=== PATIENT | female | born 1945 | race Caucasian/White ===

== ENCOUNTER 2016-11-29 03:54 | Emergency (ER) | payer MEDICARE, OTHER ==
[2016-11-29 04:08] VITALS: BP 158/81; PULSE 112; TEMP 97.4; BMI 15.3
--- NOTE | 2016-11-29 04:10 | PDOC ---
History of Present Illness - General Chief Complaint: Tachycardia Stated Complaint: HEART POUNDING Time Seen by Provider: 11/29/16 04:06 History Source: Patient Exam Limitations: No Limitations - History of Present Illness Initial Comments: 11/29/16 04:08 This is a 70-year-old female who comes in complaining of palpitations. Patient is supposed to take clonazepam for anxiety however said that she has not been taking it as prescribed and then skipped the last couple a days. Patient denies any other complaints. Patient denies any chest pain, shortness of breath, nausea , vomiting, diarrhea. PAST MEDICAL HISTORY: no significant history PAST SURGICAL HISTORY: no significant history FAMILY HISTORY: no pertinant history SOCIAL HISTORY: Pt lives with family and is employed. MEDICATIONS: reviewed ALLERGIES: As per nursing notes Review of Systems General: No fevers or chills, no weakness, no weight loss HEENT: No change in vision. No sore throat,. No ear pain CardioVascular: No chest pain or shortness of breath, palpitations as per history of present illness Respiratory:No cough, or wheezing. Gastrointestinal: no nausea, vomitting, diarrhea or constipation, No rectal bleeding Genitourinary: No dysuria, hematuria, or frequency Musculoskeletal: No joint or muscle pain or swelling Neurologic: No headache, vertigo, dizziness or loss of consciousness Psychiatric: nor depression Skin: No rashes or easy bruising Endocrine: no increased thirst or abnormal weight change Allergic: no skin or latex allergy All other systems reviewed and normal Exam: General: Well-nourished well-developed individual, no acute distress HEENT: Throat: Normal, tonsils normal, no erythema or exudate Neck: Supple, no meningeal signs, no lymphadenopathy Eyes::Pupils equal reactive and round, extraocular motion intact Chest: Nontender to palpation Cardiac: S1-S2 normal, regular rate and rhythm, no murmurs rubs or gallops Respiratory: Lungs clear to auscultation bilateral Abdomen: Soft, nondistended, normal bowel sounds, nontender to palpation diffusely Extremities: Warm, dry, no cyanosis, clubbing, or edema Skin: No rashes Neuro: Alert and oriented x3, nonfocal exam, grossly intact, normal gait Psych: Normal mood and affect EKG normal sinus rhythm at a rate of 112, no acute ST-T wave changes. Assessment plan: This is a 62-year-old female comes in complaining of palpitations most likely secondary to an anxiety attack. Patient has history of similar symptoms in the past. Patient is supposed to take clonazepam for the symptoms that has skipped the last couple of nights. Patient has clonazepam with her and did drive herself to the ER so was told to go home take her clonazepam and follow-up with her doctor in the morning. Past History - Past Medical History Allergies/Adverse Reactions: Allergies Allergy/AdvReac Type Severity Reaction Status Date / Time tetracycline [Tetracycline] Allergy Unknown Verified 03/15/15 13:54 Sulfa (Sulfonamide AdvReac Verified 03/15/15 15:48 Antibiotics) Home Medications: Ambulatory Orders Clonazepam 0.5 mg PO HS 02/12/15 Lisinopril/Hydrochlorothiazide [Lisinopril-Hctz 20-12.5 mg Tab] 1 each PO DAILY 02/12/15 Oxycodone HCl/Acetaminophen [Percocet 10-325 mg Tablet -] 1 - 2 tab PO Q6H #20 tablet 02/12/15 Levofloxacin [Levaquin] 500 mg PO DAILY 11/29/16 Morphine Sulfate 15 mg PO PRN 11/29/16 COPD: Yes HTN: Yes Psychiatric Problems: Yes (ANXIETY, PANIC ATTACKS, DEPRESSION) - Psycho/Social/Smoking Cessation Hx Anxiety: Yes Suicidal Ideation: No Smoking History: Current some day smoker Have you smoked in the past 12 months: Yes Number of Cigarettes Smoked Daily: 20 'Breaking Loose' booklet given: 03/15/15 Hx Alcohol Use: No Drug/Substance Use Hx: No Substance Use Type: None *DC/Admit/Observation/Transfer Diagnosis at time of Disposition: Anxiety, Heart palpitations - Discharge Dispostion Disposition: HOME Condition at time of disposition: Stable Admit: No - Patient Instructions Additional Instructions: Is important that you take all your medications as prescribed at that she clonazepam. Return to the emergency department immediately with ANY new, persistent or worsening symptoms. Continue any medications as previously prescribed by your physician. You should follow up with your primary doctor as soon as possible regarding today's emergency department visit. . Please make sure your doctor reviews the results of your emergency evaluation. Thank you for coming to the Emergency Department today for your care. It was a pleasure to see you today. Please note that your evaluation is INCOMPLETE until you follow-up with your doctor.
--- NOTE | 2016-11-29 19:23 | EKG ---
Test Reason : Blood Pressure : / mmHG Vent. Rate : 112 BPM Atrial Rate : 112 BPM P-R Int : 118 ms QRS Dur : 076 ms QT Int : 348 ms P-R-T Axes : 081 -72 070 degrees QTc Int : 475 ms SINUS TACHYCARDIA LEFT AXIS DEVIATION PULMONARY DISEASE PATTERN CANNOT RULE OUT INFERIOR INFARCT , AGE UNDETERMINED ABNORMAL ECG NO PREVIOUS ECGS AVAILABLE REPEAT EKG IF CLINICALLY INDICATED Confirmed by ANASTACIO BATISTA MD ([id number]) on 11/29/2016 7:22:46 PM Referred By: BO GRIMALDO Confirmed By:ANASTACIO BATISTA MD
== END 2016-11-29 04:20 | disposition home or self-care (01) ==
LOC: FER 03:54
DX: R00.2 Palpitations (principal); F41.0 Panic disorder [episodic paroxysmal anxiety]; F17.210 Nicotine dependence, cigarettes, uncomplicated
CPT/HCPCS: 93005; 93010; 99282-25

== ENCOUNTER 2017-05-02 08:29 | Inpatient (IN) | payer MEDICARE, OTHER ==
--- NOTE | 2017-05-02 08:55 | PDOC ---
History of Present Illness - General Chief Complaint: Respiratory Stated Complaint: COUGH, Time Seen by Provider: 05/02/17 08:30 - History of Present Illness Initial Comments: 05/02/17 08:54 71 F with h/o COPD, HTN, spinal stenosis, fibromyalgia presenting with SOB. Pt states she has had 5 days of SOB with cough productive of green sputum. Denies fevers or chills. Denies CP. States that she had a few sick contacts last week with the flu. Denies recent travel. No leg swelling. Does not use O2 at home. Pt states she has been using her ventolin inhaler once daily without much improvement. Past History - Past Medical History Allergies/Adverse Reactions: Allergies Allergy/AdvReac Type Severity Reaction Status Date / Time tetracycline [Tetracycline] Allergy Unknown Verified 05/02/17 08:30 Sulfa (Sulfonamide AdvReac Verified 05/02/17 08:30 Antibiotics) Home Medications: Ambulatory Orders Clonazepam 0.5 mg PO HS 02/12/15 Morphine Sulfate 30 mg PO PRN 11/29/16 Albuterol Sulfate Inhaler - [Ventolin Hfa Inhaler -] 1 - 2 inh PO Q4HWA PRN Lisinopril/Hydrochlorothiazide [Lisinopril-Hctz 20-12.5 mg Tab] 1 each PO DAILY 05/02/17 Oxycodone HCl/Acetaminophen [Percocet 10-325 mg Tablet -] 10 mg PO TID 05/02/17 COPD: Yes HTN: Yes Psychiatric Problems: Yes (ANXIETY, PANIC ATTACKS, DEPRESSION) - Suicide/Smoking/Psychosocial Hx Smoking History: Current every day smoker Have you smoked in the past 12 months: Yes Number of Cigarettes Smoked Daily: 20 Information on smoking cessation initiated: Yes 'Breaking Loose' booklet given: 05/02/17 Hx Alcohol Use: No Drug/Substance Use Hx: No Substance Use Type: None Review of Systems - Review of Systems Comments:: 05/02/17 09:25 "GENERAL/CONSTITUTIONAL: No fever or chills. No weakness. HEAD, EYES, EARS, NOSE AND THROAT: No change in vision. No ear pain or discharge. No sore throat. CARDIOVASCULAR: No chest pain RESPIRATORY: + cough, SOB GASTROINTESTINAL: No nausea, vomiting, diarrhea or constipation. GENITOURINARY: No dysuria, frequency, or change in urination. MUSCULOSKELETAL: No joint or muscle swelling or pain. No neck or back pain. SKIN: No rash NEUROLOGIC: No headache, vertigo, loss of consciousness, or change in strength/ sensation. ENDOCRINE: No increased thirst. No abnormal weight change. HEMATOLOGIC/LYMPHATIC: No anemia, easy bleeding, or history of blood clots. ALLERGIC/IMMUNOLOGIC: No hives or skin allergy. " *Physical Exam - Vital Signs Last Vital Signs Temp Pulse Resp BP Pulse Ox 99.2 F 104 H 20 120/70 92 L 05/02/17 08:29 05/02/17 08:29 05/02/17 08:29 05/02/17 08:29 05/02/17 08:29 - Physical Exam Comments: 05/02/17 09:25 "GENERAL: Awake, alert, and fully oriented, in mild respiratory distress HEAD: No signs of trauma EYES: PERRLA, EOMI, sclera anicteric, conjunctiva clear ENT: Auricles normal inspection, hearing grossly normal, nares patent, oropharynx clear without exudates. Moist mucosa NECK: Nontender, no stepoffs, Normal ROM, supple, no lymphadenopathy, JVD, or masses LUNGS: Poor aeration, no audible wheezing, no rales/rhonchi HEART: Regular rate and rhythm, normal S1 and S2, no murmurs, rubs or gallops ABDOMEN: Soft, nontender, normoactive bowel sounds. No guarding, no rebound. No masses EXTREMITIES: Normal range of motion, no edema. No clubbing or cyanosis. No cords, erythema, or tenderness NEUROLOGICAL: Cranial nerves II through XII intact. 5/5 strength and sensation in all extremities, Normal speech, normal gait SKIN: Warm, Dry, normal turgor, no rashes or lesions noted. " Heart Score/ECG Review - ECG Impressions Comment:: 05/02/17 09:26 NSR, no CORRY/STDs, no TWIs, axis wnl, intervals wnl ED Treatment Course - LABORATORY CBC & Chemistry Diagram: 05/02/17 09:18 05/02/17 09:18 - RADIOLOGY Radiology Studies Ordered: Category Date Time Status CHEST PA & LAT [RAD] Stat Radiology 05/02/17 08:34 Ordered SPINE-THORACIC [RAD] Stat Radiology 05/02/17 08:34 Ordered Medical Decision Making - Medical Decision Making 05/02/17 09:26 71 F with SOB and productive cough, found to be hypoxic to 80s in ER. Likely COPD exacerbation given poor air movement on exam. Pt with no chest pain to suggest ACS. No clinical signs of volume overload. - Labs, trop, BNP, VBG - CXR - Nebs, steroids, z-pack 05/02/17 11:22 CBC,CMP WBC 12.0 K/mm3 (4.0-10.8) H 05/02/17 09:18 RBC 4.14 M/mm3 (3.60-5.2) 05/02/17 09:18 Hgb 12.6 GM/dl (10.7-15.3) 05/02/17 09:18 Hct 37.6 % (32.4-45.2) 05/02/17 09:18 MCV 90.9 fl (80-96) 05/02/17 09:18 MCH 30.4 pg (25.7-33.7) 05/02/17 09:18 MCHC 33.5 g/dl (32.0-36.0) 05/02/17 09:18 RDW 12.2 % (11.6-15.6) 05/02/17 09:18 Plt Count 231 K/MM3 (134-434) 05/02/17 09:18 MPV 9.1 fl (7.5-11.1) 05/02/17 09:18 Neutrophils % No Result Required. 05/02/17 09:18 Lymphocytes % No Result Required. 05/02/17 09:18 Sodium 127 mmol/L (136-145) L 05/02/17 09:18 Potassium 3.8 mmol/L (3.5-5.1) 05/02/17 09:18 Chloride 92 mmol/L (98-107) L 05/02/17 09:18 Carbon Dioxide 26 mmol/L (22-28) 05/02/17 09:18 Anion Gap 9 (8-16) 05/02/17 09:18 BUN 16 mg/dl (7-18) 05/02/17 09:18 Creatinine 0.8 mg/dl (0.6-1.3) 05/02/17 09:18 Creat Clearance w eGFR > 60 (>60) 05/02/17 09:18 Random Glucose 133 mg/dl (74-106) H 05/02/17 09:18 Calcium 8.4 mg/dl (8.4-10.2) 05/02/17 09:18 Total Bilirubin 1.3 mg/dl (0.2-1.0) H 05/02/17 09:18 AST 37 U/L (10-42) 05/02/17 09:18 ALT 29 U/L (10-40) 05/02/17 09:18 Alkaline Phosphatase 97 U/L (32-92) H 05/02/17 09:18 Creatine Kinase 83 IU/L (26-192) 05/02/17 09:18 Troponin I 0.29 ng/ml (0.03-0.50) 05/02/17 09:18 Total Protein 6.2 g/dl (6.4-8.3) L 05/02/17 09:18 Albumin 3.1 g/dl (3.5-5.0) L 05/02/17 09:18 Labs notable for trop 0.29 Sodium 127 Pt reassessed s/p 3 back to back nebs and steroids - O2 sat on RA 85%, lung exam notable now for expiratory wheezes. 1L NS ordered for hyponatremia Aspirin 325 for mild troponinemia Additional nebulizers ordered Will admit to hospitalist for continued treatment of COPD, hypoNa, and trending of troponins. 05/02/17 11:42 BNP 3000, pt with no rales on exam, but will hold additional fluids for now *DC/Admit/Observation/Transfer Diagnosis at time of Disposition: COPD exacerbation, Hyponatremia - Discharge Dispostion Admit: Yes - Referrals - Patient Instructions - Post Discharge Activity - Attestations Physician Attestion: 05/02/17 11:54 I, Dr. Smith Ramesh MD, attest that this document has been prepared under my direction and personally reviewed by me in its entirety. I further attest, that it accurately reflects all work, treatment, procedures and medical decision -making performed by me.
[2017-05-02] MEDS ORDERED: methylPREDNISolone NA SUCC 125 MG/2 ML VIAL IVPUSH ONE (08:58)
[2017-05-02] MEDS ORDERED: AZITHROMYCIN 500 MG TABLET PO ONE (08:59)
[2017-05-02] MEDS: ALBUTEROL SO4 2.5/IPRATROPIUM 0.5 INH SOL 3 ML VIAL.NEB. NEB SCH ×4 (09:15→10:02)
[2017-05-02] MEDS ORDERED: ALBUTEROL SO4 2.5/IPRATROPIUM 0.5 INH SOL 3 ML VIAL.NEB. NEB ONE ×2 (09:32→09:56)
[2017-05-02] MEDS ORDERED: AZITHROMYCIN 500 MG TABLET ONE (09:32)
[2017-05-02] MEDS ORDERED: methylPREDNISolone NA SUCC 125 MG/2 ML VIAL ONE (09:32)
[2017-05-02 10:01] LABS: HEMATOCRIT 37.6 % (32.4-45.2); HEMOGLOBIN 12.6 GM/dl (10.7-15.3); MCH 30.4 pg (25.7-33.7); MCHC 33.5 g/dl (32.0-36.0); MEAN CELL VOLUME 90.9 fl (80-96); MEAN PLT VOLUME 9.1 fl (7.5-11.1); PLATELET COUNT 231 K/MM3 (134-434); RBC 4.14 M/mm3 (3.60-5.2); RDW 12.2 % (11.6-15.6)
[2017-05-02 10:09] LABS: ACTIVATED PTT 26.5 SECONDS (24.0-38.9)
[2017-05-02 10:11] LABS: ALBUMIN 3.1 g/dl (3.5-5.0); ALK PHOS 97 U/L (32-92); ANION GAP 9 (8-16); BILIRUBIN,TOTAL 1.3 mg/dl (0.2-1.0); BLOOD UREA NITROGEN 16 mg/dl (7-18); CALCIUM 8.4 mg/dl (8.4-10.2); CHLORIDE 92 mmol/L (98-107); CO2 26 mmol/L (22-28); CREATININE 0.8 mg/dl (0.6-1.3); GLUCOSE,RANDOM 133 mg/dl (74-106); POTASSIUM 3.8 mmol/L (3.5-5.1); SGOT/AST 37 U/L (10-42); SGPT/ALT 29 U/L (10-40); SODIUM 127 mmol/L (136-145); TOT PROT 6.2 g/dl (6.4-8.3)
[2017-05-02 10:14] LABS: INR 1.24 (0.82-1.09); PROTHROMBIN TIME (PATIENT) 13.8 SEC (10.2-13.0)
[2017-05-02] MEDS ORDERED: SODIUM CHLORIDE 1,000 ML IV STA (10:39)
[2017-05-02] MEDS ORDERED: ALBUTEROL SO4 0.083% IH SOL 2.5 MG/3 ML VIAL.NEB. NEB ONE ×2 (10:55→11:09)
[2017-05-02] MEDS ORDERED: ASPIRIN 325 MG TABLET PO ONE (10:55)
[2017-05-02] MEDS ORDERED: ASPIRIN 325 MG TABLET ONE (11:09)
[2017-05-02 11:13] LABS: VENOUS PC02 45.1 mmHg (38-52); VENOUS PH 7.4 (7.32-7.42); VENOUS PO2 43.6 mmHg (28-48)
[2017-05-02 11:24] LABS: PLATELET ESTIMATE ADEQUATE
[2017-05-02 11:35] LABS: PH,URINE 5.5 (4.5-8); URINE APPEARANCE Clear; URINE BILIRUBIN 1+ (NEGATIVE); URINE BLOOD 3+ (NEGATIVE); URINE COLOR YELLOW; URINE GLUCOSE (UA) Negative (NEGATIVE); URINE KETONE 1+ (NEGATIVE); URINE LEUK ESTERASE Negative (NEGATIVE); URINE NITRITE Negative (NEGATIVE); URINE PROTEIN 2+ (NEGATIVE)
[2017-05-02] MEDS ORDERED: MORPHINE SULFATE 30 MG PO SCH (12:00)
--- NOTE | 2017-05-02 12:27 | EKG ---
Test Reason : Blood Pressure : / mmHG Vent. Rate : 102 BPM Atrial Rate : 102 BPM P-R Int : 128 ms QRS Dur : 074 ms QT Int : 334 ms P-R-T Axes : 079 071 045 degrees QTc Int : 435 ms SINUS TACHYCARDIA POSSIBLE LEFT ATRIAL ENLARGEMENT LOW VOLTAGE QRS SEPTAL INFARCT , AGE UNDETERMINED ABNORMAL ECG WHEN COMPARED WITH ECG OF 29-NOV-2016 04:00, QRS AXIS SHIFTED RIGHT MINIMAL CRITERIA FOR INFERIOR INFARCT ARE NO LONGER PRESENT Confirmed by MD Jenn, Robin ([id number]) on 05/02/2017 12:27:36 PM Referred By: MD ROTHMAN Confirmed By:Robin Barajas MD
[2017-05-02] MEDS ORDERED: methylPREDNISolone NA SUCC 125 MG/2 ML VIAL IVPB SCH ×2 (13:15)
[2017-05-02 13:38] LABS: URINE WBC NEGATIVE (0-5)
[2017-05-02 13:39] LABS: EPI CELLS RARE /HPF; URINE BACTERIA NONE SEEN /hpf (NEGATIVE)
[2017-05-02] MEDS: guaiFENesin/D-METHORPHAN HB 1 EACH TAB.ER.12H PO SCH ×2 (14:40→22:13)
[2017-05-02 15:15] LABS: ANION GAP 6 (8-16); BLOOD UREA NITROGEN 16 mg/dl (7-18); CALCIUM 7.8 mg/dl (8.4-10.2); CHLORIDE 97 mmol/L (98-107); CO2 25 mmol/L (22-28); CREATININE 0.8 mg/dl (0.6-1.3); GLUCOSE,RANDOM 203 mg/dl (74-106); POTASSIUM 3.1 mmol/L (3.5-5.1); SODIUM 128 mmol/L (136-145)
--- NOTE | 2017-05-02 16:44 | CONSULT ---
Consult Consult Specialty:: Nephrology Reason for Consultation:: hyponatremia - History of Present Illness Chief Complaint: cough an shortness of breath History of Present Illness: Pt is a 71 year old female with pmhx of fibromyalgia, HTN and COPD who presents to the ER with increased shortness of breath and cough. Cough is productive of green sputum. She was found to be hyponatremic and I was called to evaluate her. She denies history of hyponatremia. She is on HCTZ daily. She has not bee eating much but has been drinking alot of water. She denies chest pain or palpitations. She denies lower ext edema. She denies hx of CHF. - History Source History Provided By: Patient, Medical Record - Past Medical History Cardio/Vascular: Yes: HTN Pulmonary: Yes: COPD Rheumatology: Yes: Fibromyalgia - Alcohol/Substance Use Hx Alcohol Use: No - Smoking History Smoking history: Current every day smoker Have you smoked in the past 12 months: Yes Aproximately how many cigarettes per day: 20 Home Medications - Allergies Allergies/Adverse Reactions: Allergies Allergy/AdvReac Type Severity Reaction Status Date / Time tetracycline [Tetracycline] Allergy Unknown Verified 05/02/17 08:30 Sulfa (Sulfonamide AdvReac Verified 05/02/17 08:30 Antibiotics) - Home Medications Home Medications: Ambulatory Orders Clonazepam 0.5 mg PO HS 02/12/15 Morphine Sulfate 30 mg PO PRN 11/29/16 Albuterol Sulfate Inhaler - [Ventolin Hfa Inhaler -] 1 - 2 inh PO Q4HWA PRN Lisinopril/Hydrochlorothiazide [Lisinopril-Hctz 20-12.5 mg Tab] 1 each PO DAILY 05/02/17 Oxycodone HCl/Acetaminophen [Percocet 10-325 mg Tablet -] 10 mg PO TID 05/02/17 Family Disease History - Family Disease History Family History: Denies Review of Systems - Review of Systems Constitutional: reports: Malaise. denies: Chills, Fever Eyes: reports: No Symptoms HENT: reports: No Symptoms Neck: reports: No Symptoms Cardiovascular: reports: Shortness of Breath. denies: Edema, Palpitations Respiratory: reports: Cough, SOB, SOB on Exertion Gastrointestinal: reports: No Symptoms Genitourinary: reports: No Symptoms Musculoskeletal: reports: Joint Pain Integumentary: reports: No Symptoms Neurological: reports: No Symptoms Endocrine: reports: No Symptoms Hematology/Lymphatic: reports: No Symptoms Psychiatric: reports: No Symptoms Physical Exam Vital Signs: Vital Signs Temperature 98.7 F 05/02/17 14:51 Pulse Rate 78 05/02/17 14:51 Respiratory Rate 20 05/02/17 14:51 Blood Pressure 103/56 05/02/17 14:51 O2 Sat by Pulse Oximetry (%) 92 L 05/02/17 14:51 Constitutional: Yes: Calm Eyes: Yes: Conjunctiva Clear HENT: Yes: Atraumatic Cardiovascular: Yes: S1, S2 Respiratory: Yes: On Nasal O2, Wheezes Gastrointestinal: Yes: Soft Renal/: Yes: WNL Musculoskeletal: Yes: WNL Edema: No Neurological: Yes: Oriented Psychiatric: Yes: Oriented Labs: CBC, BMP 05/02/17 09:18 05/02/17 14:28 Laboratory Tests 05/02/17 05/02/17 05/02/17 09:18 09:18 09:18 WBC 12.0 H Hgb 12.6 PT with INR 13.8 H INR 1.24 H VBG pH POC VBG pCO2 POC VBG pO2 Mixed VBG HCO3 Sodium Potassium Chloride Carbon Dioxide BUN Creatinine Random Glucose Serum Osmolality B-Natriuretic Peptide 3001.56 H TSH Ur Specific Reading Urine Protein Urine Blood Urine Osmolality Ur Random Sodium 05/02/17 05/02/17 05/02/17 09:18 09:18 11:05 WBC Hgb PT with INR INR VBG pH 7.40 POC VBG pCO2 45.1 POC VBG pO2 43.6 Mixed VBG HCO3 27.4 H Sodium 127 L Potassium 3.8 Chloride Carbon Dioxide 26 BUN Creatinine Random Glucose Serum Osmolality B-Natriuretic Peptide TSH Ur Specific Reading 1.015 Urine Protein 2+ H Urine Blood 3+ H Urine Osmolality Ur Random Sodium 05/02/17 05/02/17 14:28 14:28 WBC Hgb PT with INR INR VBG pH POC VBG pCO2 POC VBG pO2 Mixed VBG HCO3 Sodium 128 L Potassium 3.1 L Chloride 97 L Carbon Dioxide 25 BUN 16 Creatinine 0.8 Random Glucose 203 H D Serum Osmolality Pending B-Natriuretic Peptide TSH Pending Ur Specific Reading Urine Protein Urine Blood Urine Osmolality Pending Ur Random Sodium Pending Imaging - Results Chest X-ray: Report Reviewed Problem List - Problems (1) COPD exacerbation Code(s): J44.1 - CHRONIC OBSTRUCTIVE PULMONARY DISEASE W (ACUTE) EXACERBATION (2) Hyponatremia Code(s): E87.1 - HYPO-OSMOLALITY AND HYPONATREMIA Assessment/Plan Current Medications Generic Name Dose Route Start Last Admin Trade Name Freq PRN Reason Stop Dose Admin Acetaminophen 325 mg 05/02/17 22:00 Tylenol - PO TID TONY Azithromycin 250 mg 05/03/17 10:00 Zithromax - PO 05/06/17 10:01 DAILY TONY Clonazepam 0.5 mg 05/02/17 22:00 Klonopin - PO HS TONY Enoxaparin Sodium 40 mg 05/03/17 10:00 Lovenox - SQ DAILY TONY Guaifenesin 1 tablet 05/02/17 13:45 05/02/17 14:40 Mucinex Dm - PO 1 tablet BID [facility] Administration Lisinopril 20 mg 05/03/17 10:00 Prinivil PO DAILY TONY Methylprednisolone Sodium Succinate 60 mg 05/02/17 13:15 05/02/17 15:39 Solu-Medrol - IVPB Not Given Q8H [facility] Non-Formulary Medication 30 mg 05/02/17 12:00 Morphine Sulfate [Morphine Sulfate] PO PRN TONY Oxycodone HCl 10 mg 05/02/17 22:00 Roxicodone - PO TID [facility] Impression 1. hyponatremia 2. shortness of breath 3. copd exacerbation 4. fibromyalgia 5. htn 6. spinal stenosis Plan - stop Hctz - restrict free water - can be liberal with salt - she did respont to saline - check echo as bnp is elevated - replace potassium and check mag - check ua, urine and plasma osm - check tsh and cortisol - discussed with primary team - discussed with pts son Dr Ellis
[2017-05-02] MEDS ORDERED: POTASSIUM CHLORIDE TABS 20 MEQ TABLET.ER (FP) PO ONE (16:45)
--- NOTE | 2017-05-02 16:47 | HP ---
Admitting History and Physical - Admission Chief Complaint: cough, worsening sob History of Present Illness: This is a 71 year old female with h/o COPD, HTN, spinal stenosis, fibromyalgia who presented to the Ed with worsening sob after 5 days. Patient reports a very thick mucus which was not expectorating and causing worsening shortness of breath and cough with green sputum. She was noted to have audible wheezing in ED , given solumedrol and duonebs and received 1L NS. After, fluids stopped for BNP of 3000. Currently, she is on the floor able to converse without respiratory distress, denies chest pain and wheezing has stopped. She does have some fibromyalgia pain stirring and confirmed she takes morphine sulfate ER 30mg BID. In ED 1. Sodium 127 2. WBC 12 History Source: Patient Limitations to Obtaining History: No Limitations - Past Medical History Cardiovascular: Yes: HTN Pulmonary: Yes: COPD Rheumatology: Yes: Fibromyalgia - Past Surgical History Additional Past Surgical History: breast augmentation 20-years ago - Smoking History Smoking history: Current every day smoker Have you smoked in the past 12 months: Yes Aproximately how many cigarettes per day: 20 - Alcohol/Substance Use Hx Alcohol Use: No - Social History Usual Living Arrangement: Yes: Alone ADL: Independent Home Medications - Allergies Allergies/Adverse Reactions: Allergies Allergy/AdvReac Type Severity Reaction Status Date / Time tetracycline [Tetracycline] Allergy Unknown Verified 05/02/17 08:30 Sulfa (Sulfonamide AdvReac Verified 05/02/17 08:30 Antibiotics) - Home Medications Home Medications: Ambulatory Orders Clonazepam 0.5 mg PO HS 02/12/15 Morphine Sulfate 30 mg PO PRN 11/29/16 Albuterol Sulfate Inhaler - [Ventolin Hfa Inhaler -] 1 - 2 inh PO Q4HWA PRN Lisinopril/Hydrochlorothiazide [Lisinopril-Hctz 20-12.5 mg Tab] 1 each PO DAILY 05/02/17 Oxycodone HCl/Acetaminophen [Percocet 10-325 mg Tablet -] 10 mg PO TID 05/02/17 Review of Systems - Review of Systems Constitutional: reports: No Symptoms Eyes: reports: No Symptoms HENT: reports: No Symptoms Neck: reports: No Symptoms Cardiovascular: reports: Shortness of Breath Respiratory: reports: Cough, SOB Gastrointestinal: reports: No Symptoms Genitourinary: reports: No Symptoms Musculoskeletal: reports: No Symptoms Integumentary: reports: No Symptoms Neurological: reports: No Symptoms Endocrine: reports: No Symptoms Hematology/Lymphatic: reports: No Symptoms Psychiatric: reports: No Symptoms Physical Examination Vital Signs: Vital Signs Temperature 98.7 F 05/02/17 14:51 Pulse Rate 78 05/02/17 14:51 Respiratory Rate 20 05/02/17 14:51 Blood Pressure 103/56 05/02/17 14:51 O2 Sat by Pulse Oximetry (%) 92 L 05/02/17 14:51 Constitutional: Yes: No Distress, Thin Eyes: Yes: Conjunctiva Clear HENT: Yes: Atraumatic Neck: Yes: Supple Cardiovascular: Yes: Regular Rate and Rhythm, S1, S2 Respiratory: Yes: Cough, Diminished, On Nasal O2 Gastrointestinal: Yes: Normal Bowel Sounds, Soft Renal/: Yes: WNL Musculoskeletal: Yes: Back Pain, Other (base of neck pain) Extremities: Yes: WNL Edema: No Peripheral Pulses WNL: Yes Integumentary: Yes: WNL Neurological: Yes: Alert, Oriented, Cran Nerves II-XII Intact ...Motor Strength: WNL Psychiatric: Yes: Alert, Oriented Labs: CBC, BMP 05/02/17 09:18 05/02/17 14:28 Imaging - Results Chest X-ray: Report Reviewed (no acute pathology), Image Reviewed X-ray: Report Reviewed, Image Reviewed Problem List - Problems (1) COPD exacerbation Code(s): J44.1 - CHRONIC OBSTRUCTIVE PULMONARY DISEASE W (ACUTE) EXACERBATION (2) Hyponatremia Code(s): E87.1 - HYPO-OSMOLALITY AND HYPONATREMIA Assessment/Plan Assessment: 71 year old female with h/o COPD, HTN, spinal stenosis, fibromyalgia , anxiety admitted with worsening sob and cough Plan: 1. Acute COPD exacerbation - Start medrol 40mg q8hr - Duonebs prn - Obtain sputum cx - Azithro 500mg in ED , conitnue azithromycin x 4 more days - Muscinex BID - Start protonix 40mg daily for empiric ulcer coverage - Start ISS as pt on steroids 2. Elevated BNP - Pt dose not appear fluid overloaded - Will obtain ECHO asses for effusions/cor pulmonale 3. Hyponatremia - Did receive 1L NS in ED with response - Restrict fluids 1L - No further IVF at this time - Encourage salt intake - Send urine/serum osom, urine sodium - TSH, AM cortisol level - Discussed above with renal 4. Fibromyalgia/spinal stenosis - Resume home pain medication regimen 5. HTN - Hold HCTZ - Resume lisinopril 20mg daily 6. Anxiety - Klonopin hs 7. DVT ppx - Lovenox sq Visit type - Emergency Visit Emergency Visit: Yes ED Registration Date: 05/02/17 Care time: The patient presented to the Emergency Department on the above date and was hospitalized for further evaluation of their emergent condition. - New Patient This patient is new to me today: Yes Date on this admission: 05/02/17 - Critical Care Critical Care patient: No
[2017-05-02 17:03] VITALS: BMI 17.2
[2017-05-02] MEDS: PANTOPRAZOLE 40 MG TABLET (FP) PO SCH (17:53)
[2017-05-02] MEDS ORDERED: oxyCODONE HCL 5 MG TABLET PO ONE (17:56)
[2017-05-02] MEDS: methylPREDNISolone NA SUCC 40 MG/1 ML VIAL IVPB SCH (18:09)
[2017-05-02 18:57] LABS: OSMOLALITY,URINE 408 mosm/kg (300-900)
[2017-05-02] MEDS: oxyCODONE HCL 5 MG TABLET PO SCH (19:30)
[2017-05-02] MEDS: ACETAMINOPHEN 325 MG TABLET (FP) PO SCH (19:31)
[2017-05-02 20:58] LABS: OSMOLALITY,SERUM 277 mosm/kg (278-305)
[2017-05-02] MEDS ORDERED: oxyCODONE HCL 5 MG TABLET PO SCH (22:00)
[2017-05-02] MEDS ORDERED: PT OWN MED DRAWER 7, Y5N ONE (22:04)
[2017-05-02] MEDS: clonazePAM 0.5 MG TABLET PO SCH (22:13)
[2017-05-02] MEDS: INSULIN SLIDING SCALE (NOVOLOG) 1 VIAL SQ SCH (22:46)
[2017-05-03] MEDS: morphine SO4 SUSTAINED ACTING 30 MG TABLET.SA PO SCH ×3 (02:07→22:08)
[2017-05-03] MEDS: methylPREDNISolone NA SUCC 40 MG/1 ML VIAL IVPB SCH ×3 (02:14→17:25)
[2017-05-03] MEDS: oxyCODONE HCL 5 MG TABLET PO SCH ×3 (06:25→22:06)
[2017-05-03] MEDS: ACETAMINOPHEN 325 MG TABLET (FP) PO SCH ×3 (06:27→22:07)
[2017-05-03] MEDS: INSULIN SLIDING SCALE (NOVOLOG) 1 VIAL SQ SCH ×4 (07:03→22:13)
[2017-05-03] MEDS ORDERED: INSULIN (NOVOLOG) ASPART 100 UNITS/ML 10ML VIAL ONE ×2 (07:10→12:23)
[2017-05-03 08:18] LABS: HEMATOCRIT 37.7 % (32.4-45.2); HEMOGLOBIN 12.6 GM/dl (10.7-15.3); MCHC 33.5 g/dl (32.0-36.0); MEAN CELL VOLUME 92.6 fl (80-96); MONO % 5.5 % (3.8-10.2); NEUT % 87.5 % (42.8-82.8); PLATELET COUNT 260 K/MM3 (134-434); RBC 4.07 M/mm3 (3.60-5.2); RDW 12.5 % (11.6-15.6)
--- NOTE | 2017-05-03 08:48 | PN ---
Physical Exam: SUBJECTIVE: Patient seen and examined at bedside. + coughing OBJECTIVE: Vital Signs Period Temp Pulse Resp BP Sys/Greene Pulse Ox Last 24 Hr 97.7 F-99 F 78-107 18-20 96-116/52-61 92-100 GENERAL: The patient is awake, alert, and fully oriented, in no acute distress. LUNGS: Loose cough; CTA HEART: Regular rate and rhythm, S1, S2 without murmur, rub or gallop. ABDOMEN: Soft, nontender, nondistended, normoactive bowel sounds, no guarding, no rebound EXTREMITIES: 2+ pulses, warm, well-perfused, no edema. NEUROLOGICAL: Cranial nerves II through XII grossly intact. Normal speech, gait not observed. Laboratory Results - last 24 hr 05/02/17 05/02/17 05/02/17 09:18 09:18 09:18 WBC 12.0 H RBC 4.14 Hgb 12.6 Hct 37.6 MCV 90.9 MCH 30.4 MCHC 33.5 RDW 12.2 Plt Count 231 MPV 9.1 Neutrophils % No Result Required. Neutrophils % (Manual) 64.0 Band Neutrophils % 15.0 H Lymphocytes % No Result Required. Lymphocytes % (Manual) 8.0 Monocytes % (Manual) 12 H Platelet Estimate Adequate PT with INR 13.8 H INR 1.24 H PTT (Actin FS) 26.5 VBG pH POC VBG pCO2 POC VBG pO2 Mixed VBG HCO3 Sodium Potassium Chloride Carbon Dioxide Anion Gap BUN Creatinine Creat Clearance w eGFR POC Glucometer Random Glucose Serum Osmolality Calcium Total Bilirubin AST ALT Alkaline Phosphatase Creatine Kinase Troponin I B-Natriuretic Peptide 3001.56 H Total Protein Albumin TSH Urine Color Urine Appearance Urine pH Ur Specific [place] Urine Protein Urine Glucose (UA) Urine Ketones Urine Blood Urine Nitrite Urine Bilirubin Urine Urobilinogen Ur Leukocyte Esterase Urine RBC Urine WBC Ur Epithelial Cells Urine Bacteria Urine Osmolality Ur Random Sodium 05/02/17 05/02/17 05/02/17 09:18 09:18 09:18 WBC RBC Hgb Hct MCV MCH MCHC RDW Plt Count MPV Neutrophils % Neutrophils % (Manual) Band Neutrophils % Lymphocytes % Lymphocytes % (Manual) Monocytes % (Manual) Platelet Estimate PT with INR INR PTT (Actin FS) VBG pH 7.40 POC VBG pCO2 45.1 POC VBG pO2 43.6 Mixed VBG HCO3 27.4 H Sodium 127 L Potassium 3.8 Chloride 92 L Carbon Dioxide 26 Anion Gap 9 BUN 16 Creatinine 0.8 Creat Clearance w eGFR > 60 POC Glucometer Random Glucose 133 H Serum Osmolality Calcium 8.4 Total Bilirubin 1.3 H AST 37 ALT 29 Alkaline Phosphatase 97 H Creatine Kinase Troponin I 0.29 B-Natriuretic Peptide Total Protein 6.2 L Albumin 3.1 L TSH Urine Color Urine Appearance Urine pH Ur Specific [place] Urine Protein Urine Glucose (UA) Urine Ketones Urine Blood Urine Nitrite Urine Bilirubin Urine Urobilinogen Ur Leukocyte Esterase Urine RBC Urine WBC Ur Epithelial Cells Urine Bacteria Urine Osmolality Ur Random Sodium 05/02/17 05/02/17 05/02/17 09:18 11:05 14:28 WBC RBC Hgb Hct MCV MCH MCHC RDW Plt Count MPV Neutrophils % Neutrophils % (Manual) Band Neutrophils % Lymphocytes % Lymphocytes % (Manual) Monocytes % (Manual) Platelet Estimate PT with INR INR PTT (Actin FS) VBG pH POC VBG pCO2 POC VBG pO2 Mixed VBG HCO3 Sodium 128 L Potassium 3.1 L Chloride 97 L Carbon Dioxide 25 Anion Gap 6 L BUN 16 Creatinine 0.8 Creat Clearance w eGFR POC Glucometer Random Glucose 203 H D Serum Osmolality 277 L Calcium 7.8 L Total Bilirubin AST ALT Alkaline Phosphatase Creatine Kinase 83 Troponin I B-Natriuretic Peptide Total Protein Albumin TSH 0.36 Urine Color Yellow Urine Appearance Clear Urine pH 5.5 Ur Specific [place] 1.015 Urine Protein 2+ H Urine Glucose (UA) Negative Urine Ketones 1+ H Urine Blood 3+ H Urine Nitrite Negative Urine Bilirubin 1+ H Urine Urobilinogen 1.0 Ur Leukocyte Esterase Negative Urine RBC 4-6 Urine WBC Negative Ur Epithelial Cells Rare Urine Bacteria None seen Urine Osmolality 408 Ur Random Sodium Current Medications Generic Name Dose Route Start Last Admin Trade Name Freq PRN Reason Stop Dose Admin Acetaminophen 325 mg 05/02/17 18:15 05/03/17 13:58 Tylenol - PO Not Given TID TONY Albuterol Sulfate 1 amp 05/03/17 14:00 Ventolin 0.083% Nebulizer Soln - NEB Q6H TONY Clonazepam 0.5 mg 05/02/17 22:00 05/02/17 22:13 Klonopin - PO 0.5 mg HS TONY Administration Enoxaparin Sodium 40 mg 05/03/17 10:00 05/03/17 10:38 Lovenox - SQ 40 mg DAILY TONY Administration Guaifenesin 1 tablet 05/02/17 13:45 05/03/17 10:38 Mucinex Dm - PO 1 tablet BID TONY Administration Insulin Aspart 1 vial 05/02/17 22:00 05/03/17 12:10 Novolog Vial Sliding Scale - SQ 2 units ACHS TONY Administration Protocol Levofloxacin 500 mg 05/03/17 11:30 05/03/17 13:52 Levaquin - PO 500 mg DAILY@0600 TONY Administration Lisinopril 20 mg 05/03/17 10:00 05/03/17 10:39 Prinivil PO 20 mg DAILY TONY Administration Methylprednisolone Sodium Succinate 40 mg 05/02/17 18:00 05/03/17 10:39 Solu-Medrol - IVPB 40 mg Q8H-IV TONY Administration Morphine Sulfate 30 mg 05/02/17 22:00 05/03/17 10:35 Ms Contin - PO 30 mg BID TONY Administration Oxycodone HCl 10 mg 05/02/17 18:15 05/03/17 13:58 Roxicodone - PO 10 mg TID TONY Administration Pantoprazole Sodium 40 mg 05/02/17 17:00 05/03/17 10:35 Protonix - PO 40 mg DAILY TONY Administration Potassium Chloride 40 meq 05/03/17 10:00 05/03/17 10:35 K-Dur - PO 05/03/17 16:01 40 meq Q6H TONY Administration ASSESSMENT/PLAN 71 year-old female with PMH significant for HTN, COPD, fibromyalgia, and spinal stenosis. Acute on chronic COPD exacerbation --continue solumedrol 40mg q8hr --albuterol nebs --switch azithro to levofloxacin to cover typicals and atypicals Elevated BNP --echo pending --no diuretics Hyponatremia --resolving --fluid restrict, liberal with salt Hypokalemia --repleted Fibromyalgia/spinal stenosis --home regimen: clonazepam, MS Contin, oxycodone Hypertension --BP stable --continue lisinopril; continue to hold HCTZ Anxiety --continue clonazepam DVT prophylaxis: lovenox Dispo: continues to require inpatient care. Full code. Visit type - Emergency Visit Emergency Visit: Yes ED Registration Date: 05/02/17 Care time: The patient presented to the Emergency Department on the above date and was hospitalized for further evaluation of their emergent condition. - New Patient This patient is new to me today: Yes Date on this admission: 05/03/17 - Critical Care Critical Care patient: No
[2017-05-03 09:07] LABS: ALBUMIN 2.7 g/dl (3.5-5.0); ALK PHOS 88 U/L (32-92); ANION GAP 8 (8-16); BILIRUBIN,TOTAL 0.7 mg/dl (0.2-1.0); BLOOD UREA NITROGEN 19 mg/dl (7-18); CHLORIDE 98 mmol/L (98-107); CO2 26 mmol/L (22-28); CREATININE 0.6 mg/dl (0.6-1.3); GLUCOSE,RANDOM 143 mg/dl (74-106); MAGNESIUM 2.1 mg/dL (1.8-2.4); PHOSPHOROUS 2.9 mg/dl (2.5-4.6); POTASSIUM 3.4 mmol/L (3.5-5.1); SGOT/AST 38 U/L (10-42); SGPT/ALT 32 U/L (10-40); SODIUM 132 mmol/L (136-145); TOT PROT 5.9 g/dl (6.4-8.3)
[2017-05-03] MEDS ORDERED: AZITHROMYCIN 250 MG TABLET PO SCH (10:00)
--- NOTE | 2017-05-03 10:22 | PN ---
Progress Note, Physician History of Present Illness: Pt seen and examined at bedside. She is awake and alert. She feels that her breathing is a little better today. She still has a cough. - Current Medication List Current Medications: Active Medications Acetaminophen (Tylenol -) 325 mg PO TID [facility] [place] Last Admin: 05/03/17 06:27 Dose: Not Given Azithromycin (Zithromax -) 250 mg PO DAILY [facility] Stop: 05/06/17 10:01 Clonazepam (Klonopin -) 0.5 mg PO HS [facility] Last Admin: 05/02/17 22:13 Dose: 0.5 mg Enoxaparin Sodium (Lovenox -) 40 mg SQ DAILY [facility] Guaifenesin (Mucinex Dm -) 1 tablet PO BID [facility] Last Admin: 05/02/17 22:13 Dose: 1 tablet Insulin Aspart (Novolog Vial Sliding Scale -) 1 vial SQ ACHS [facility] [place] PRN Reason: Protocol Last Admin: 05/03/17 07:03 Dose: 2 units Lisinopril (Prinivil) 20 mg PO DAILY [facility] [place] Methylprednisolone Sodium Succinate (Solu-Medrol -) 40 mg IVPB Q8H-IV [facility] Last Admin: 05/03/17 02:14 Dose: 40 mg Morphine Sulfate (Ms Contin -) 30 mg PO BID [facility] Last Admin: 05/03/17 02:07 Dose: Not Given Oxycodone HCl (Roxicodone -) 10 mg PO TID [facility] [place] Last Admin: 05/03/17 06:25 Dose: 10 mg Pantoprazole Sodium (Protonix -) 40 mg PO DAILY [facility] [place] Last Admin: 05/02/17 17:53 Dose: 40 mg Potassium Chloride (K-Dur -) 40 meq PO Q6H [facility] [place] Stop: 05/03/17 16:01 - Objective Vital Signs: Vital Signs Temperature 97.7 F 05/03/17 06:00 Pulse Rate 83 05/03/17 06:00 Respiratory Rate 20 05/03/17 08:50 Blood Pressure 96/61 05/03/17 06:00 O2 Sat by Pulse Oximetry (%) 92 L 05/03/17 08:50 Constitutional: Yes: Calm Eyes: Yes: Conjunctiva Clear HENT: Yes: Atraumatic Cardiovascular: Yes: S1, S2 Respiratory: Yes: On Nasal O2, Wheezes Gastrointestinal: Yes: Soft Genitourinary: Yes: WNL Musculoskeletal: Yes: WNL Edema: No Neurological: Yes: Oriented Psychiatric: Yes: Oriented Labs: CBC, BMP 05/03/17 07:30 05/03/17 07:30 INR, PTT INR 1.24 (0.82-1.09) H 05/02/17 09:18 Problem List - Problems (1) COPD exacerbation Code(s): J44.1 - CHRONIC OBSTRUCTIVE PULMONARY DISEASE W (ACUTE) EXACERBATION (2) Hyponatremia Code(s): E87.1 - HYPO-OSMOLALITY AND HYPONATREMIA Assessment/Plan Current Medications Generic Name Dose Route Start Last Admin Trade Name Freq PRN Reason Stop Dose Admin Acetaminophen 325 mg 05/02/17 18:15 05/03/17 06:27 Tylenol - PO Not Given TID TONY Azithromycin 250 mg 05/03/17 10:00 Zithromax - PO 05/06/17 10:01 DAILY TONY Clonazepam 0.5 mg 05/02/17 22:00 05/02/17 22:13 Klonopin - PO 0.5 mg HS TONY Administration Enoxaparin Sodium 40 mg 05/03/17 10:00 Lovenox - SQ DAILY [facility] Guaifenesin 1 tablet 05/02/17 13:45 05/02/17 22:13 Mucinex Dm - PO 1 tablet BID TONY Administration Insulin Aspart 1 vial 05/02/17 22:00 05/03/17 07:03 Novolog Vial Sliding Scale - SQ 2 units ACHS TONY Administration Protocol Lisinopril 20 mg 05/03/17 10:00 Prinivil PO DAILY [facility] [place] Methylprednisolone Sodium Succinate 40 mg 05/02/17 18:00 05/03/17 02:14 Solu-Medrol - IVPB 40 mg Q8H-IV TONY Administration Morphine Sulfate 30 mg 05/02/17 22:00 05/03/17 02:07 Ms Contin - PO Not Given BID TONY Oxycodone HCl 10 mg 05/02/17 18:15 05/03/17 06:25 Roxicodone - PO 10 mg TID TONY Administration Pantoprazole Sodium 40 mg 05/02/17 17:00 05/02/17 17:53 Protonix - PO 40 mg DAILY TONY Administration Potassium Chloride 40 meq 05/03/17 10:00 K-Dur - PO 05/03/17 16:01 Q6H TONY Laboratory Tests 0105/02/17 05/02/17 14:28 14:28 14:28 TSH 0.36 Cortisol AM Sample Pending Urine Osmolality 408 Ur Random Sodium < 5 Laboratory Tests 05/02/17 14:28 Serum Osmolality 277 L Impression 1. hyponatremia hypo-osmolar 2. shortness of breath 3. copd exacerbation 4. fibromyalgia 5. htn 6. spinal stenosis Plan - sodium is improving - hyponatremia likely from dehydration - repeat labs in am - would not restart hctz at this time, bp is stable - check echo as bnp was elevated - will repeat bnp as well Dr Ellis
[2017-05-03] MEDS: POTASSIUM CHLORIDE TABS 20 MEQ TABLET.ER (FP) PO SCH ×2 (10:35→17:26)
[2017-05-03] MEDS: PANTOPRAZOLE 40 MG TABLET (FP) PO SCH (10:35)
[2017-05-03] MEDS: ENOXAPARIN NA (PORCINE) 40 MG/0.4 ML DISP.SYRIN SQ SCH (10:38)
[2017-05-03] MEDS: guaiFENesin/D-METHORPHAN HB 1 EACH TAB.ER.12H PO SCH ×2 (10:38→22:04)
[2017-05-03] MEDS: LISINOPRIL 20 MG TABLET (FP) PO SCH (10:39)
[2017-05-03] MEDS: ALBUTEROL SO4 0.083% IH SOL 2.5 MG/3 ML VIAL.NEB. NEB SCH ×2 (15:26→22:04)
[2017-05-03] MEDS ORDERED: PT OWN MED DRAWER 7, Y5N ONE (22:03)
[2017-05-03] MEDS: clonazePAM 0.5 MG TABLET PO SCH (22:05)
[2017-05-04] MEDS: methylPREDNISolone NA SUCC 40 MG/1 ML VIAL IVPB SCH ×3 (01:51→21:37)
[2017-05-04] MEDS: oxyCODONE HCL 5 MG TABLET PO SCH ×3 (06:20→21:38)
[2017-05-04] MEDS: INSULIN SLIDING SCALE (NOVOLOG) 1 VIAL SQ SCH ×4 (06:23→22:01)
[2017-05-04] MEDS: ACETAMINOPHEN 325 MG TABLET (FP) PO SCH ×3 (06:23→21:39)
[2017-05-04] MEDS: ALBUTEROL SO4 0.083% IH SOL 2.5 MG/3 ML VIAL.NEB. NEB SCH (08:40)
[2017-05-04 09:48] LABS: ANION GAP 8 (8-16); BLOOD UREA NITROGEN 20 mg/dl (7-18); CALCIUM 8.6 mg/dl (8.4-10.2); CHLORIDE 101 mmol/L (98-107); CO2 26 mmol/L (22-28); CREATININE 0.7 mg/dl (0.6-1.3); GLUCOSE,RANDOM 117 mg/dl (74-106); POTASSIUM 4.5 mmol/L (3.5-5.1); SODIUM 135 mmol/L (136-145)
[2017-05-04] MEDS ORDERED: PT OWN MED DRAWER 7, Y5N ONE ×3 (10:08→21:26)
[2017-05-04] MEDS: PANTOPRAZOLE 40 MG TABLET (FP) PO SCH (10:14)
[2017-05-04] MEDS: ENOXAPARIN NA (PORCINE) 40 MG/0.4 ML DISP.SYRIN SQ SCH (10:14)
[2017-05-04] MEDS: morphine SO4 SUSTAINED ACTING 15 MG TABLET.SA PO SCH ×2 (10:15→21:38)
[2017-05-04] MEDS: LISINOPRIL 20 MG TABLET (FP) PO SCH (10:15)
[2017-05-04] MEDS: HYDROCHLOROTHIAZIDE 12.5 MG CAPSULE (FP) PO SCH ×2 (10:15→10:36)
[2017-05-04] MEDS: guaiFENesin/D-METHORPHAN HB 1 EACH TAB.ER.12H PO SCH ×2 (10:17→22:59)
--- NOTE | 2017-05-04 10:42 | PN ---
Physical Exam: SUBJECTIVE: Patient seen and examined. She is still coughing, wheezing less. Able to carry conversation without sob. OBJECTIVE: Vital Signs Period Temp Pulse Resp BP Sys/Greene Pulse Ox Last 24 Hr 97.5 F-98.5 F 73-97 16-20 108-116/44-64 94-98 PE Neuro: alert, awake, cn 2-12intact Pulm: course basilar bs, rhonchi + nc + cough CV: s1 s2 rrr no mrg Abd: s nt nd +bs Ext: Warm, no le edema Laboratory Results - last 24 hr 05/04/17 05/04/17 06:19 08:05 Sodium 135 L Potassium 4.5 D Chloride 101 Carbon Dioxide 26 Anion Gap 8 BUN 20 H Creatinine 0.7 POC Glucometer 146 Random Glucose 117 H Calcium 8.6 Active Medications Generic Name Dose Route Start Last Admin Trade Name Freq PRN Reason Stop Dose Admin Acetaminophen 325 mg 05/02/17 18:15 05/04/17 06:23 Tylenol - PO Not Given TID TONY Albuterol Sulfate 1 amp 05/03/17 16:00 05/04/17 08:40 Ventolin 0.083% Nebulizer Soln - NEB 1 amp RQID TONY Administration Clonazepam 0.5 mg 05/02/17 22:00 05/03/17 22:05 Klonopin - PO 0.5 mg HS TONY Administration Enoxaparin Sodium 40 mg 05/03/17 10:00 05/04/17 10:14 Lovenox - SQ 40 mg DAILY TONY Administration Guaifenesin 1 tablet 05/02/17 13:45 05/04/17 10:17 Mucinex Dm - PO 1 tablet BID TONY Administration Hydrochlorothiazide 12.5 mg 05/04/17 10:00 05/04/17 10:36 Hctz - PO Not Given DAILY TONY Insulin Aspart 1 vial 05/02/17 22:00 05/04/17 06:23 Novolog Vial Sliding Scale - SQ Not Given ACHS [facility] Protocol Levofloxacin 500 mg 05/03/17 11:30 05/04/17 06:20 Levaquin - PO 500 mg DAILY@0600 TONY Administration Lisinopril 20 mg 05/03/17 10:00 05/04/17 10:15 Prinivil PO 20 mg DAILY TONY Administration Methylprednisolone Sodium Succinate 40 mg 05/04/17 10:00 05/04/17 10:14 Solu-Medrol - IVPB 40 mg BID TONY Administration Morphine Sulfate 15 mg 05/04/17 10:00 05/04/17 10:15 Ms Contin - PO 15 mg BID TONY Administration Oxycodone HCl 10 mg 05/02/17 18:15 05/04/17 06:20 Roxicodone - PO 10 mg TID TONY Administration Pantoprazole Sodium 40 mg 05/02/17 17:00 05/04/17 10:14 Protonix - PO 40 mg DAILY TONY Administration Assessment: 71 year old female with PMH significant for HTN, COPD, fibromyalgia , and spinal stenosis. Plan: 1. Acute on chronic COPD exacerbation - Taper medrol 40mg BID - Continue levaquin (day 2) - Duonebs 2. Elevated BNP - ECHO shows lvef 70-75%, mild mr, tr, mild pulmonary htn - Pulmonary consulted 3. Smoking hx/persistent cough - CT chest r/o pulmonary nodule 4. HTN - Can resume HCTZ - Continue lisinopril 5. Hyponatremia - Resolving - Continue fluid restriction 6. Hypokalemia - Resolved 7. Fibromyalgia/spinal stenosis - Home regimen: clonazepam, MS Contin, oxycodone 8. Anxiety - Continue clonazepam 9. DVT prophylaxis - Lovenox sq Problem List - Problems (1) COPD exacerbation Code(s): J44.1 - CHRONIC OBSTRUCTIVE PULMONARY DISEASE W (ACUTE) EXACERBATION (2) Hyponatremia Code(s): E87.1 - HYPO-OSMOLALITY AND HYPONATREMIA Visit type - Emergency Visit Emergency Visit: Yes ED Registration Date: 05/02/17 Care time: The patient presented to the Emergency Department on the above date and was hospitalized for further evaluation of their emergent condition. - New Patient This patient is new to me today: No - Critical Care Critical Care patient: No
[2017-05-04 10:51] LABS: N-TERMINAL BNP 2682.99 pg/ml (5-125)
--- NOTE | 2017-05-04 10:54 | PN ---
Progress Note (short form) - Note Progress Note: PULMONARY CONSULTATION DICTATED 05/04/17 IMP COPD EXACERBATION HTN MILD PULMONARY HTN FIBROMYALGIA TOBACCO ABUSE PLAN IV STEROIDS INHALED BRONCHODILATORS O2 PFTS OUTPATIENT CHEST CT DR MIRANDA
[2017-05-04] MEDS ORDERED: ALBUTEROL SO4 0.083% IH SOL 2.5 MG/3 ML VIAL.NEB. NEB PRN (10:56)
[2017-05-04] MEDS ORDERED: BUDESONIDE/FORMETEROL FUMARATE 160/4.5 mcg INHALER IH SCH (11:00)
[2017-05-04] MEDS ORDERED: TIOTROPIUM BROMIDE 18 MCG CAPSULES IH SCH (11:00)
--- NOTE | 2017-05-04 11:34 | CONS ---
PULMONARY CONSULTATION DATE OF CONSULTATION: 05/04/2017 REFERRING PHYSICIAN: The patient is a 71-year-old, white female, with past medical history of COPD maintained on albuterol inhaler, hypertension, spinal stenosis, fibromyalgia, long-standing history of tobacco use approximately 1 pack per day since age 18 stopped approximately 2 weeks ago, who was admitted to [facility] with increasing shortness of breath and cough. The patient states that she started developing the above symptoms approximately 4 months ago. She has been on intermittent courses of antibiotic therapy by her PMD. Despite these measures, she has had persistent symptoms. Approximately 5 days prior to admission, started developing increasing shortness of breath, cough, and dyspnea on exertion. Describes the cough productive of green sputum. She presented to the emergency room with the above. In the ER, she was noted to have audible wheezing and noted to be dyspneic. She was started on inhaled bronchodilators and steroids with good clinical response. She was also noted to be hyponatremic. She was admitted to the floor for further management. On admission, her BNP was mildly elevated at 3000. She underwent an echocardiogram which revealed mild pulmonary hypertension. She was also noted to have mild aortic sclerosis without stenosis with normal LV function between 70% and 75%. The patient was started on bronchodilators with good clinical response. The patient denies any history of occupational exposure to chemicals or fumes. She denies any history of DVT or PE in the past. There is no history of occupational exposures. There is no history of recent travel. PAST MEDICAL HISTORY: Includes COPD, fibromyalgia, hypertension, spinal stenosis. REVIEW OF SYSTEMS: Positive cough. No chest pain. No palpitations. No fever. No chills. Positive mild weight loss. No hemoptysis. No abdominal pain. CURRENT MEDICATIONS: Include Solu-Medrol of 40 b.i.d., Tylenol, Prinivil, Levaquin, Lovenox, Mucinex, Klonopin, albuterol, NovoLog, MS Contin, oxycodone, Protonix, and hydrochlorothiazide. PHYSICAL EXAMINATION: General: The patient is a thin, white female, well-developed, awake, alert, in no acute distress. Vital signs: She is afebrile, blood pressure 108/44, respiratory rate is 18, O2 saturation is 95% on 2 liters. HEENT: Exam is normocephalic, atraumatic. Neck: Supple. Heart: Regular S1 and S2. Chest: A few scattered wheezes. Abdomen: Soft. Bowel sounds positive. Extremities: No cyanosis, edema. LABORATORIES: Sodium is 135, BUN 20, creatinine 0.7. INR is 1.24. WBC is 17, hemoglobin 12.6, hematocrit 37.7, with a platelet count of 260,000. Chest x-ray was no infiltrates, no effusions. IMPRESSION: 1. Chronic obstructive pulmonary disease with acute exacerbation. 2. Hyponatremia; corrected. 3. Fibromyalgia. 4. Hypertension. 5. History of tobacco use. PLAN: Continue steroid taper. Start inhaled bronchodilator. with inhaled corticosteroid and anticholinergic. Also, CT scan of the chest. PFTs outpatient. Current O2 saturation monitoring as outpatient. Check O2 saturation at rest and post exercise prior to discharge. Confirm whether the patient requires home O2. VANCE MIRANDA M.D. [id number]
[2017-05-04] MEDS ORDERED: INSULIN (NOVOLOG) ASPART 100 UNITS/ML 10ML VIAL ONE ×2 (12:05→16:43)
[2017-05-04] MEDS: TIOTROPIUM BROMIDE 18 MCG CAPSULES IH SCH (13:25)
[2017-05-04] MEDS: BUDESONIDE/FORMETEROL FUMARATE 160/4.5 mcg INHALER IH SCH ×2 (13:27→21:38)
--- NOTE | 2017-05-04 13:38 | PN ---
Progress Note, Physician History of Present Illness: Pt seen and examined at bedside. She feels that her breathing is improved. She denies chest pain. - Current Medication List Current Medications: Active Medications Acetaminophen (Tylenol -) 325 mg PO TID [facility] Last Admin: 05/04/17 06:23 Dose: Not Given Albuterol Sulfate (Ventolin 0.083% Nebulizer Soln -) 1 amp NEB Q4H PRN PRN Reason: SHORT OF BREATH/WHEEZING Budesonide/Formoterol Fumarate (Symbicort 160/4.5mcg -) 2 puff IH BID [facility] Last Admin: 05/04/17 13:27 Dose: 2 puff Clonazepam (Klonopin -) 0.5 mg PO HS [facility] Last Admin: 05/03/17 22:05 Dose: 0.5 mg Enoxaparin Sodium (Lovenox -) 40 mg SQ DAILY [facility] Last Admin: 05/04/17 10:14 Dose: 40 mg Guaifenesin (Mucinex Dm -) 1 tablet PO BID [facility] Last Admin: 05/04/17 10:17 Dose: 1 tablet Hydrochlorothiazide (Hctz -) 12.5 mg PO DAILY [facility] Last Admin: 05/04/17 10:36 Dose: Not Given Insulin Aspart (Novolog Vial Sliding Scale -) 1 vial SQ ACHS [facility] PRN Reason: Protocol Last Admin: 05/04/17 12:00 Dose: 2 units Levofloxacin (Levaquin -) 500 mg PO DAILY@0600 [facility] Last Admin: 05/04/17 06:20 Dose: 500 mg Lisinopril (Prinivil) 20 mg PO DAILY [facility] Last Admin: 05/04/17 10:15 Dose: 20 mg Methylprednisolone Sodium Succinate (Solu-Medrol -) 40 mg IVPB BID [facility] Last Admin: 05/04/17 10:14 Dose: 40 mg Morphine Sulfate (Ms Contin -) 15 mg PO BID [facility] Last Admin: 05/04/17 10:15 Dose: 15 mg Oxycodone HCl (Roxicodone -) 10 mg PO TID [facility] Last Admin: 05/04/17 13:26 Dose: 10 mg Pantoprazole Sodium (Protonix -) 40 mg PO DAILY [facility] Last Admin: 05/04/17 10:14 Dose: 40 mg Tiotropium [place] (Spiriva -) 1 puff IH DAILY [facility] Last Admin: 05/04/17 13:25 Dose: 1 puff - Objective Vital Signs: Vital Signs Temperature 98.5 F 05/04/17 10:00 Pulse Rate 97 H 05/04/17 10:00 Respiratory Rate 18 05/04/17 10:00 Blood Pressure 108/44 05/04/17 10:00 O2 Sat by Pulse Oximetry (%) 95 05/04/17 10:00 Constitutional: Yes: Calm Eyes: Yes: Conjunctiva Clear HENT: Yes: Atraumatic Neck: Yes: Supple Cardiovascular: Yes: S1, S2 Respiratory: Yes: Wheezes Gastrointestinal: Yes: Soft Genitourinary: Yes: WNL Musculoskeletal: Yes: WNL Edema: No Neurological: Yes: Oriented Psychiatric: Yes: Oriented Labs: CBC, BMP 05/03/17 07:30 05/04/17 08:05 INR, PTT INR 1.24 (0.82-1.09) H 05/02/17 09:18 Problem List - Problems (1) COPD exacerbation Code(s): J44.1 - CHRONIC OBSTRUCTIVE PULMONARY DISEASE W (ACUTE) EXACERBATION (2) Hyponatremia Code(s): E87.1 - HYPO-OSMOLALITY AND HYPONATREMIA Assessment/Plan Current Medications Generic Name Dose Route Start Last Admin Trade Name Freq PRN Reason Stop Dose Admin Acetaminophen 325 mg 05/02/17 18:15 05/04/17 06:23 Tylenol - PO Not Given TID TONY Albuterol Sulfate 1 amp 05/04/17 10:56 Ventolin 0.083% Nebulizer Soln - NEB Q4H PRN SHORT OF BREATH/WHEEZING Budesonide/Formoterol Fumarate 2 puff 05/04/17 13:30 05/04/17 13:27 Symbicort 160/4.5mcg - IH 2 puff BID TONY Administration Clonazepam 0.5 mg 05/02/17 22:00 05/03/17 22:05 Klonopin - PO 0.5 mg HS TONY Administration Enoxaparin Sodium 40 mg 05/03/17 10:00 05/04/17 10:14 Lovenox - SQ 40 mg DAILY TONY Administration Guaifenesin 1 tablet 05/02/17 13:45 05/04/17 10:17 Mucinex Dm - PO 1 tablet BID TONY Administration Hydrochlorothiazide 12.5 mg 05/04/17 10:00 05/04/17 10:36 Hctz - PO Not Given DAILY TONY Insulin Aspart 1 vial 05/02/17 22:00 05/04/17 12:00 Novolog Vial Sliding Scale - SQ 2 units ACHS TONY Administration Protocol Levofloxacin 500 mg 05/03/17 11:30 05/04/17 06:20 Levaquin - PO 500 mg DAILY@0600 TONY Administration Lisinopril 20 mg 05/03/17 10:00 05/04/17 10:15 Prinivil PO 20 mg DAILY TONY Administration Methylprednisolone Sodium Succinate 40 mg 05/04/17 10:00 05/04/17 10:14 Solu-Medrol - IVPB 40 mg BID TONY Administration Morphine Sulfate 15 mg 05/04/17 10:00 05/04/17 10:15 Ms Contin - PO 15 mg BID TONY Administration Oxycodone HCl 10 mg 05/02/17 18:15 05/04/17 13:26 Roxicodone - PO 10 mg TID TONY Administration Pantoprazole Sodium 40 mg 05/02/17 17:00 05/04/17 10:14 Protonix - PO 40 mg DAILY TONY Administration Tiotropium [place] 1 puff 05/04/17 13:30 05/04/17 13:25 Spiriva - IH 1 puff DAILY TONY Administration Impression 1. hyponatremia hypo-osmolar 2. shortness of breath 3. copd exacerbation 4. fibromyalgia 5. htn 6. spinal stenosis Plan - sodium is stabilizing - cont steroids with taper - please stop hctz - monitor sodium - will see pt in office next week - echo reviewed - pulmonary input appreciated - discussed with primary team Dr Ellis
[2017-05-04] MEDS: clonazePAM 0.5 MG TABLET PO SCH (21:38)
[2017-05-05] MEDS: ACETAMINOPHEN 325 MG TABLET (FP) PO SCH (05:58)
[2017-05-05] MEDS: oxyCODONE HCL 5 MG TABLET PO SCH (05:58)
[2017-05-05] MEDS: INSULIN SLIDING SCALE (NOVOLOG) 1 VIAL SQ SCH (06:42)
--- NOTE | 2017-05-05 07:19 | PN ---
Progress Note, Physician History of Present Illness: pulmonary alert,feeling better,less cough,-sob - Current Medication List Current Medications: Active Medications Acetaminophen (Tylenol -) 325 mg PO TID [facility] Last Admin: 05/05/17 05:58 Dose: 325 mg Albuterol Sulfate (Ventolin 0.083% Nebulizer Soln -) 1 amp NEB Q4H PRN PRN Reason: SHORT OF BREATH/WHEEZING Budesonide/Formoterol Fumarate (Symbicort 160/4.5mcg -) 2 puff IH BID [facility] Last Admin: 05/04/17 21:38 Dose: 2 puff Clonazepam (Klonopin -) 0.5 mg PO HS [facility] Last Admin: 05/04/17 21:38 Dose: 0.5 mg Enoxaparin Sodium (Lovenox -) 40 mg SQ DAILY [facility] Last Admin: 05/04/17 10:14 Dose: 40 mg Guaifenesin (Mucinex Dm -) 1 tablet PO BID [facility] Last Admin: 05/04/17 22:59 Dose: 1 tablet Insulin Aspart (Novolog Vial Sliding Scale -) 1 vial SQ ACHS [facility] PRN Reason: Protocol Last Admin: 05/05/17 06:42 Dose: Not Given Levofloxacin (Levaquin -) 500 mg PO DAILY@0600 [facility] Last Admin: 05/05/17 05:59 Dose: 500 mg Lisinopril (Prinivil) 20 mg PO DAILY [facility] Last Admin: 05/04/17 10:15 Dose: 20 mg Methylprednisolone Sodium Succinate (Solu-Medrol -) 40 mg IVPB BID [facility] Last Admin: 05/04/17 21:37 Dose: 40 mg Morphine Sulfate (Ms Contin -) 15 mg PO BID [facility] Last Admin: 05/04/17 21:38 Dose: 15 mg Oxycodone HCl (Roxicodone -) 10 mg PO TID [facility] Last Admin: 05/05/17 05:58 Dose: 10 mg Pantoprazole Sodium (Protonix -) 40 mg PO DAILY [facility] Last Admin: 05/04/17 10:14 Dose: 40 mg Tiotropium [place] (Spiriva -) 1 puff IH DAILY [facility] Last Admin: 05/04/17 13:25 Dose: 1 puff - Objective Vital Signs: Vital Signs Temperature 98.5 F 05/05/17 06:00 Pulse Rate 66 05/05/17 06:00 Respiratory Rate 19 02/02/18 06:00 Blood Pressure 129/58 05/05/17 06:00 O2 Sat by Pulse Oximetry (%) 95 05/05/17 06:16 Constitutional: Yes: Calm, Thin Eyes: Yes: WNL HENT: Yes: WNL Cardiovascular: Yes: Regular Rate and Rhythm, S1, S2 Respiratory: Yes: Diminished Gastrointestinal: Yes: Normal Bowel Sounds, Soft Extremities: Yes: WNL Edema: No - ....Imaging Cat Scan: Report Reviewed, Image Reviewed (RLL CONSOLIDATION/AELECTASIS) Problem List - Problems (1) COPD exacerbation Code(s): J44.1 - CHRONIC OBSTRUCTIVE PULMONARY DISEASE W (ACUTE) EXACERBATION (2) Hyponatremia Code(s): E87.1 - HYPO-OSMOLALITY AND HYPONATREMIA Assessment/Plan IMP COPD EXACERBATION improved HTN MILD PULMONARY HTN FIBROMYALGIA TOBACCO ABUSE PLAN PREDNISONE TAPER INHALED BRONCHODILATORS O2 PFTS OUTPATIENT F/U CHEST CT6-[address] MIRANDA
[2017-05-05 08:52] LABS: ANION GAP 6 (8-16); BLOOD UREA NITROGEN 21 mg/dl (7-18); CALCIUM 8.6 mg/dl (8.4-10.2); CHLORIDE 105 mmol/L (98-107); CO2 26 mmol/L (22-28); CREATININE 0.8 mg/dl (0.6-1.3); GLUCOSE,RANDOM 110 mg/dl (74-106); POTASSIUM 4.6 mmol/L (3.5-5.1); SODIUM 137 mmol/L (136-145)
[2017-05-05] MEDS ORDERED: PT OWN MED DRAWER 7, Y5N ONE (09:59)
[2017-05-05] MEDS: ENOXAPARIN NA (PORCINE) 40 MG/0.4 ML DISP.SYRIN SQ SCH ×2 (10:06→10:33)
[2017-05-05] MEDS: PANTOPRAZOLE 40 MG TABLET (FP) PO SCH (10:06)
[2017-05-05] MEDS: methylPREDNISolone NA SUCC 40 MG/1 ML VIAL IVPB SCH (10:06)
[2017-05-05] MEDS: LISINOPRIL 20 MG TABLET (FP) PO SCH (10:06)
[2017-05-05] MEDS: TIOTROPIUM BROMIDE 18 MCG CAPSULES IH SCH (10:07)
[2017-05-05] MEDS: guaiFENesin/D-METHORPHAN HB 1 EACH TAB.ER.12H PO SCH (10:07)
[2017-05-05] MEDS: BUDESONIDE/FORMETEROL FUMARATE 160/4.5 mcg INHALER IH SCH (10:08)
--- NOTE | 2017-05-05 11:24 | DS ---
Physical Exam: SUBJECTIVE: Patient seen and examined. She feels better, appears improved no longer requiring supplemental o2. Denies cp. OBJECTIVE: Vital Signs Period Temp Pulse Resp BP Sys/Greene Pulse Ox Last 24 Hr 98.3 F-98.9 F 66-88 18-19 116-129/52-68 93-96 PE Neuro: alert, awake, cn 2-12intact Pulm: diminished, R base crackles, less cough CV: s1 s2 rrr no mrg Abd: s nt nd +bs Ext: Warm, no le edema Laboratory Results - last 24 hr 05/02/17 05/04/17 05/04/17 14:28 11:34 16:46 Sodium Potassium Chloride Carbon Dioxide Anion Gap BUN Creatinine POC Glucometer 173 140 Random Glucose Calcium Cortisol AM Sample 36.3 05/05/17 05/05/17 06:18 07:53 Sodium 137 Potassium 4.6 Chloride 105 Carbon Dioxide 26 Anion Gap 6 L BUN 21 H Creatinine 0.8 POC Glucometer 122 Random Glucose 110 H Calcium 8.6 Cortisol AM Sample HOSPITAL COURSE: Date of Admission:05/02/17 Date of Discharge: 05/05/17 Minutes to complete discharge: 37 Discharge Summary Reason For Visit: ACUTE EXACERBATION OF COPD,HYPONATREMIA Current Active Problems COPD exacerbation (Acute) Hyponatremia (Acute) Hospital Course: Initial Hospital Course: Briefly, this 71 year old female with h/o COPD, HTN, spinal stenosis, fibromyalgia presented with worsening sob after 5 days. Patient reported a very thick mucus which was not expectorating and causing worsening shortness of breath and cough with green sputum. She was noted to have audible wheezing in ED , given solumedrol and duonebs and received 1L NS. After, fluids stopped for BNP of 3000 and hyponatremia readings. Confirmed she takes morphine sulfate ER 30mg BID. Subsequent Hospital Course/Progress Note/DC summary: Plan: 1. Acute on chronic COPD exacerbation - Improved, s/p IV medrol - Home with prednisone taper - Home with levaquin total 5 days - Started [place], Symbicort 2. Elevated BNP - ECHO shows lvef 70-75%, mild mr, tr, mild pulmonary htn 3. Smoking hx/persistent cough - CT chest shows RLL consolidation/atelectasis, f/u in 6-8 weeks with pulm - PFTs as outpt 4. HTN - Stop HCTZ - Continue lisinopril 20mg day 5. Hyponatremia - Resolved - Do not restart HCTZ until cleared with nephrology, f/u next week referral enclosed 6. Hypokalemia - Resolved 7. Fibromyalgia/spinal stenosis - Home regimen: clonazepam, MS Contin, oxycodone 8. Anxiety - Continue clonazepam Dispo: - Home with above plan, medications and referrals - Pt and son aware and agree to above plan Condition: Stable - Instructions Diet, Activity, Other Instructions: Please return to the ED for any new, persistent, or worsening symptoms. Follow up with your PCP in 1 week (referra enclosed) Take new and regular home medication as directed on home medication list, note you are no longer taking HCTZ, take only lisinopril until follow up with Dr. Ellis Complete steroid taper as directed and until completed Finish antibiotics, 2 days remaining Referrals: Donavan Ma MD [Staff Physician] - Chiki Fernandez MD [Staff Physician] - Husam Ellis MD [Staff Physician] - Disposition: HOME - Home Medications Comprehensive Discharge Medication List: Ambulatory Orders Clonazepam 0.5 mg PO HS 02/12/15 Albuterol Sulfate Inhaler - [Ventolin HFA Inhaler -] 1 - 2 inh PO Q4HWA PRN Oxycodone HCl/Acetaminophen [Percocet 10-325 mg Tablet] 10 mg PO TID 05/02/17 Budesonide/Formeterol Fumarate [SYMBICORT 160/4.5mcg -] 2 puff IH BID #1 inhaler 05/05/17 Levofloxacin [Levaquin -] 500 mg PO DAILY #2 tablet 05/05/17 Lisinopril [Prinivil] 20 mg PO DAILY #30 tablet 05/05/17 Morphine *Sr* [MS Contin -] 30 mg PO BID tablet.sa MDD 2 05/05/17 Pantoprazole Sodium [Protonix -] 40 mg PO DAILY #12 tablet.ec 05/05/17 Prednisone [Deltasone -] 10 mg PO ASDIR #34 tab 05/05/17 Tiotropium [place] [Spiriva] 1 puff IH DAILY #1 inh 05/05/17 Problem List - Problems (1) COPD exacerbation Code(s): J44.1 - CHRONIC OBSTRUCTIVE PULMONARY DISEASE W (ACUTE) EXACERBATION (2) Hyponatremia Code(s): E87.1 - HYPO-OSMOLALITY AND HYPONATREMIA This patient is new to me today: No Emergency Visit: Yes ED Registration Date: 05/02/17 Care time: The patient presented to the Emergency Department on the above date and was hospitalized for further evaluation of their emergent condition. Critical Care patient: No - Discharge Referral Referred to [facility] Med P.C.: No
[2017-05-05 12:24] VITALS: BP 127/66; PULSE 92; TEMP 98.8
== END 2017-05-05 12:10 | disposition home or self-care (01) | DRG 191 ==
LOC: FER 08:29 → FM/S 14:14
PROVIDERS: ADMIT Internal Medicine; ATTEND Nurse Practitioner Acute Care
DX: J44.1 Chronic obstructive pulmonary disease with (acute) exacerbation (principal); E87.1 Hypo-osmolality and hyponatremia; M79.7 Fibromyalgia; M48.00 Spinal stenosis, site unspecified; I10 Essential (primary) hypertension; F41.9 Anxiety disorder, unspecified; F17.210 Nicotine dependence, cigarettes, uncomplicated; E87.6 Hypokalemia; I27.20 Pulmonary hypertension, unspecified
CPT/HCPCS: 36415; 71046-TC-FY; 71250-TC; 72070-TC-FY; 80048; 80053; 81003; 81015; 82533; 82550; 82803; 82962; 83735; 83880; 83930; 83935; 84100; 84300; 84443; 84484; 85025; 85610; 85730; 87070; 87205; 87804; 93005; 93306-TC; 94640; 99284-25; J7030